=== PATIENT | female | born 1975 | race African-American/Black ===

== ENCOUNTER 2016-07-28 15:19 | Emergency (ER) | payer BC ==
--- NOTE | ~2016-07-28 | US85 ---
[facility] A Service of [facility] RADIOLOGY TEXT RESULTS PATIENT: PABLO VERDUGO LOCATION: [facility] : 73 UNIT #: [id number] AGE: [address]: MARK RAMIREZ SEX: F ORDER DR: [id number] [facility] [address] [place], [place] [address] [id number] E MR#: [id number] Acc #: [id number] NAME: PABLO VERDUGO : 1975 SEX: F STUDY DATE/TIME: 07/28/2016 14:32 UNIT: CFTX ROOM: STUDY DESCRIPTION: [facility] Attending Physician: Mark Ramirez A.P.R.N. Ordering Physician: Mark Ramirez A.P.R.N. Primary Care Physician: Marciano Salcedo M.D. MEDICAL IMAGING REPORT This report is preliminary unless electronic signature is present EXAM Left lower extremity venous ultrasound. HISTORY Left leg pain for 1 week. FINDINGS Ultrasound examination of left lower extremity veins was performed from the groin to the calf with qureshi-scale, color Doppler and spectral Doppler evaluation The veins are patent and compressible. No DVT or SVT. There is a Mejia's cyst in the popliteal fossa measuring 0.9 cm x 2.7 cm in AP and transverse dimensions and 4.2 cm in length, containing internal debris. IMPRESSION 1. No DVT or SVT in the lower extremity. 2. Mejia's cyst in the popliteal fossa measures 4.2 cm in length and contains debris. Dictated by... Ajay Real M.D. THIS IS AN ELECTRONICALLY VERIFIED REPORT Ajay Real M.D. at 07/28/2016 10:29 PM GILDA/hayden TD: 07/28/2016 16:49 JOB #: [id number] MEDICAL IMAGING REPORT [facility] A Service of [facility] RADIOLOGY TEXT RESULTS PATIENT: PABLO VERDUGO LOCATION: [facility] : 73 UNIT #: [id number] AGE: [address]: MARK RAMIREZ SEX: F ORDER DR: Page 1 of 1 COPY
--- NOTE | ~2016-07-28 | CR172 ---
[facility] A Service of [facility] & [facility] RADIOLOGY TEXT RESULTS PATIENT: PABLO VERDUGO LOCATION: [facility] : 73 UNIT #: [id number] AGE: [address]: MARK RAMIREZ SEX: F ORDER DR: [id number] [facility] [address] [place], [place] [address] [id number] E MR#: [id number] Acc #: [id number] NAME: PABLO VERDUGO : 1975 SEX: F STUDY DATE/TIME: 07/28/2016 14:11 UNIT: CFTX ROOM: STUDY DESCRIPTION: CR Knee 3 Views Lt Attending Physician: Mark Ramirez A.P.R.N. Ordering Physician: Mark Ramirez A.P.R.N. Primary Care Physician: Marciano Salcedo M.D. MEDICAL IMAGING REPORT This report is preliminary unless electronic signature is present EXAM Left knee 3 views HISTORY Knee pain for 1 week. No injury. FINDINGS 3 views of the left knee demonstrate normal bone alignment. No fracture, joint space narrowing, or abnormal sclerosis. Small suprapatellar effusion. IMPRESSION 1. No fracture. 2. Small knee effusion. 3. Normal bone alignment. Dictated by... Ajay Real M.D. THIS IS AN ELECTRONICALLY VERIFIED REPORT Ajay Real M.D. at 07/28/2016 10:29 PM DFL/ron TD: 07/28/2016 15:46 JOB #: [id number] MEDICAL IMAGING REPORT Page 1 of 1 COPY
== END 2016-07-28 16:13 | disposition home or self-care (01) ==
LOC: CED 15:19
DX: M71.22 Synovial cyst of popliteal space [Baker], left knee (principal); F17.200 Nicotine dependence, unspecified, uncomplicated; Z90.710 Acquired absence of both cervix and uterus
CPT/HCPCS: 73562; 93971; 99284